=== PATIENT | female | born 1965 | race Caucasian/White ===

== ENCOUNTER 2016-12-22 13:50 | Emergency (ER) | payer OTHER ==
[~2016-12-22] VITALS: Ht 157.5 cm; Wt 100.6 kg
[2016-12-22 13:52] VITALS: BP 153/92
[2016-12-22] MEDS ORDERED: HYDROcodone/APAP 5/325 TABLET ONE (14:50)
[2016-12-22] MEDS ORDERED: HYDROcodone/APAP 5/325 TABLET PO ONE (15:00)
[2016-12-22] MEDS ORDERED: PLEASE ENTER ALLERGIES MC SCH ×2 (15:00)
== END 2016-12-22 15:42 | disposition home or self-care (01) ==
LOC: ED 15:39
DX: S52.592A Other fractures of lower end of left radius, initial encounter for closed fracture (principal); E11.9 Type 2 diabetes mellitus without complications; Z90.710 Acquired absence of both cervix and uterus; F17.200 Nicotine dependence, unspecified, uncomplicated; W19.XXXA Unspecified fall, initial encounter; Y93.89 Activity, other specified; Y92.89 Other specified places as the place of occurrence of the external cause; Y99.8 Other external cause status
CPT/HCPCS: 29125

== ENCOUNTER 2018-07-02 06:43 | Emergency (ER) | payer BC, OTHER ==
[~2018-07-02] VITALS: Ht 162.6 cm; Wt 97.5 kg
[2018-07-02] MEDS ORDERED: HYDROmorphone 1 MG/ML, 1ML IV ONE (07:30)
[2018-07-02] MEDS ORDERED: SODIUM CHLORIDE 0.9% 1,000ML IV ONE (07:30)
[2018-07-02] MEDS ORDERED: SODIUM CHLORIDE FLUSH 10ML SYR IVF ONE (07:30)
[2018-07-02] MEDS ORDERED: ONDANSETRON 2MG/ML, 2ML IVPush ONE (07:30)
[2018-07-02 07:37] LABS: BASOPHILS # (AUTO) 0.03 x10^3/uL (0-0.1); BASOPHILS % (AUTO) 1 % (0-1); EOSINOPHILS % (AUTO) 2 % (1-7); LYMPHOCYTES # (AUTO) 1.89 x10^3/uL (1-3.4); LYMPHOCYTES % (AUTO) 28 % (22-44); MD NO; MEAN CORPUSCULAR HEMOGLOBIN 30.5 pg (27.0-34.8); MEAN CORPUSCULAR HGB CONC 34.1 g/dL (32.4-35.8); MEAN CORPUSCULAR VOLUME 89.6 fL (80-100); MEAN PLATELET VOLUME 10.4 fL (7.4-10.4); MONOCYTES # (AUTO) 0.38 x10^3/uL (0.2-0.8); MONOCYTES % (AUTO) 6 % (2-9); NEUTROPHILS # (AUTO) 4.36 x10^3/uL (1.8-6.8); NEUTROPHILS % (AUTO) 65 % (42-75); PLATELET COUNT 184 x10^3/uL (130-400); RED BLOOD COUNT 4.96 x10^6/uL (3.82-5.3); RED CELL DISTRIBUTION WIDTH 13.8 % (9.6-15.2)
[2018-07-02] MEDS ORDERED: ONDANSETRON 2MG/ML, 2ML ONE (07:46)
[2018-07-02] MEDS ORDERED: HYDROmorphone 2 MG/ML, 1ML ONE (07:46)
[2018-07-02 07:50] LABS: ALANINE AMINOTRANSFERASE 42 U/L (12-78); ALBUMIN 3.5 g/dL (3.4-5.0); ANION GAP 8 mmol/L (5-15); CALCIUM 8.9 mg/dL (8.5-10.1); CHLORIDE 107 mmol/L (98-107)
[2018-07-02 07:53] LABS: ALKALINE PHOSPHATASE 128 U/L (45-117); BILIRUBIN,TOTAL 0.7 mg/dL (0.2-1.0); CREATININE 0.63 mg/dL (0.55-1.02); TOTAL PROTEIN 7.1 g/dL (6.4-8.2)
[2018-07-02 08:15] LABS: CULTURE INDICATED? NO; MICROSCOPIC NOT IND
[2018-07-02 09:12] LABS: HEMOGLOBIN A1C 11.5 % (4.2-6.3)
[2018-07-02 10:15] VITALS: BP 125/50
== END 2018-07-02 10:52 | disposition home or self-care (01) ==
LOC: ED 09:37
DX: S39.012A Strain of muscle, fascia and tendon of lower back, initial encounter (principal); E11.65 Type 2 diabetes mellitus with hyperglycemia; I10 Essential (primary) hypertension; E88.81 Metabolic syndrome and other insulin resistance; Z85.818 Personal history of malignant neoplasm of other sites of lip, oral cavity, and pharynx; Z88.5 Allergy status to narcotic agent; Z88.1 Allergy status to other antibiotic agents; Z90.710 Acquired absence of both cervix and uterus; X58.XXXA Exposure to other specified factors, initial encounter; Y93.89 Activity, other specified; Y99.8 Other external cause status; Y92.89 Other specified places as the place of occurrence of the external cause
CPT/HCPCS: 36415; 74176; 80053; 81003; 83036; 83690; 85025; 93005; 96361; 96374; 96375; 99285; J1170; J2405; J7030

== ENCOUNTER 2019-05-06 08:58 | Outpatient (CLI) | payer OTHER | END 2019-05-06 23:59 | disposition home or self-care (01) | LOC: CFH 08:58 | PROVIDERS: ATTEND Nurse Practitioner Family | DX: N64.4 Mastodynia (principal) | CPT/HCPCS: 76642; 77066; G0279 ==

== ENCOUNTER 2019-08-11 08:19 | Emergency (ER) | payer OTHER ==
[~2019-08-11] VITALS: Ht 157.5 cm; Wt 105.0 kg
--- NOTE | 2019-08-11 08:33 | NUR ---
THIS IS A 54 YO FEMALE COMING IN FOR LBP [id number], WORSENING RECENTLY. PATIENT SAW PCP AND FOLLOWED PLAN OF CARE WITH NO RELIEF. PATIENT STATES THE PAIN IS NOW RADIATING DOWN THE RIGHT LEG "LIKE A KAYLI HORSE". PATIENT IS A DIABETIC AND TOOK BLOOOD SUGAR THIS MORNING AND IT WAS 68. PATIENT HAS HAD N/V FOR THE PAST FEW DAYS, HAS NOT BEEN ABLE TO KEEP ANYTHING DOWN, DIARRHEA. PATIENT PLACED ON CONTINUOUS SPO2 AT 98%, CYCLE BP Q1HR. BLANKET PROVIDED, NEEDS ADDRESSED.
--- NOTE | 2019-08-11 08:55 | NUR ---
BLOOD SUGAR OBTAINED, CURRENTLY 65.
[2019-08-11] MEDS ORDERED: ONDANSETRON ODT 4 MG ONE (08:57)
[2019-08-11] MEDS ORDERED: METHOCARBAMOL 750 MG TABLET ONE ×2 (08:57→10:26)
[2019-08-11] MEDS ORDERED: HYDROcodone/APAP 5/325 TABLET ONE ×2 (08:57→09:01)
[2019-08-11 09:00] LABS: BASOPHILS # (AUTO) 0.04 x10^3/uL (0-0.1); BASOPHILS % (AUTO) 1 % (0-1); EOSINOPHILS # (AUTO) 0.16 x10^3/uL (0-0.4); EOSINOPHILS % (AUTO) 2 % (1-7); LYMPHOCYTES # (AUTO) 2.05 x10^3/uL (1-3.4); LYMPHOCYTES % (AUTO) 27 % (22-44); MD NO; MEAN CORPUSCULAR HEMOGLOBIN 30.1 pg (27.0-34.8); MEAN CORPUSCULAR HGB CONC 32.7 g/dL (32.4-35.8); MONOCYTES # (AUTO) 0.47 x10^3/uL (0.2-0.8); MONOCYTES % (AUTO) 6 % (2-9); NEUTROPHILS # (AUTO) 5.02 x10^3/uL (1.8-6.8); NEUTROPHILS % (AUTO) 65 % (42-75); PLATELET COUNT 194 x10^3/uL (130-400); RED BLOOD COUNT 5.09 x10^6/uL (3.82-5.3); RED CELL DISTRIBUTION WIDTH 14.2 % (9.6-15.2)
[2019-08-11] MEDS ORDERED: ONDANSETRON ODT 4 MG PO ONE (09:00)
[2019-08-11] MEDS ORDERED: METHOCARBAMOL 750 MG TABLET PO ONE (09:00)
[2019-08-11] MEDS ORDERED: HYDROcodone/APAP 5/325 TABLET PO ONE (09:00)
--- NOTE | 2019-08-11 09:03 | NUR ---
PATIENT GIVEN PO ZOFRAN, STATED "I DON'T THINK I'LL BE ABLE TO KEEP THE PILLS DOWN BECAUSE I FEEL LIKE I'M GOING TO THROW UP". OTHER MEDICATIONS HELD. NOTIFIED.
[2019-08-11] MEDS ORDERED: INSU100V35 SQ (09:06)
[2019-08-11] MEDS ORDERED: IBUP-1222 PO (09:07)
[2019-08-11] MEDS ORDERED: ESCI10TA PO (09:07)
[2019-08-11 09:08] LABS: MICROSCOPIC NOT IND
[2019-08-11] MEDS ORDERED: LEVO25TA4 PO (09:08)
[2019-08-11 09:10] LABS: ALBUMIN 3.7 g/dL (3.4-5.0); ANION GAP 4 mmol/L (5-15); CALCIUM 8.6 mg/dL (8.5-10.1); CHLORIDE 111 mmol/L (98-107); CREATININE 0.52 mg/dL (0.55-1.02)
[2019-08-11 09:11] LABS: CULTURE INDICATED? NO
--- NOTE | 2019-08-11 09:15 | NUR ---
PT TO X RAY
[2019-08-11] MEDS ORDERED: KETOROLAC 30 MG/1 ML ONE (09:42)
[2019-08-11] MEDS ORDERED: METOCLOPRAMIDE 5 MG/ML, 2ML ONE (09:42)
--- NOTE | 2019-08-11 09:55 | NUR ---
IV STARTED, PATIETN MEDICATED PER EMAR. TOLERATED WELL, NEEDS ADDRESSED.
[2019-08-11] MEDS ORDERED: KETOROLAC 30 MG/1 ML IVPush ONE (10:00)
[2019-08-11] MEDS ORDERED: SODIUM CHLORIDE 0.9% 1,000ML IVBOLUS ONE (10:00)
[2019-08-11] MEDS ORDERED: DEXTROSE 50%, 50ML SYRINGE IVPush ONE (10:00)
[2019-08-11] MEDS ORDERED: METOCLOPRAMIDE 5 MG/ML, 2ML IVPush ONE (10:00)
--- NOTE | 2019-08-11 10:28 | NUR ---
PT STATES BACK PAIN IS WORSE, BETTER WITH NAUSEA. ORDERED MEAL TRAY
--- NOTE | 2019-08-11 11:32 | NUR ---
PATIENT UP IN GURNEY, VSS, RESPIRATIONS EVEN AND UNLABORED. DENIES NEEDS AT THIS TIME, WAITING FOR FOOD TRAY.
--- NOTE | 2019-08-11 12:04 | NUR ---
PATIENT PROVIDED WITH MEAL TRAY, UP ON SIDE OF BED EATING AT THIS TIME.
[2019-08-11 12:58] VITALS: BP 140/65
== END 2019-08-11 13:05 | disposition home or self-care (01) ==
LOC: ED 08:39
DX: S39.012A Strain of muscle, fascia and tendon of lower back, initial encounter (principal); E11.649 Type 2 diabetes mellitus with hypoglycemia without coma; I10 Essential (primary) hypertension; E66.9 Obesity, unspecified; Z85.850 Personal history of malignant neoplasm of thyroid; Z88.6 Allergy status to analgesic agent; X58.XXXA Exposure to other specified factors, initial encounter; Y93.89 Activity, other specified; Y92.89 Other specified places as the place of occurrence of the external cause; Y99.8 Other external cause status
CPT/HCPCS: 36415; 72110; 80048; 81003; 82040; 82962; 85025; 96361; 96374; 96375; 99284; J1885; J2765; J7030; Q0162

== ENCOUNTER 2019-09-18 10:13 | Emergency (ER) | payer OTHER ==
[~2019-09-18] VITALS: Ht 157.5 cm; Wt 105.0 kg
[~2019-09-18 10:13] MED LIST: ESCI10TA PO; IBUP-1222 PO; INSU100V35 SQ; LEVO25TA4 PO
--- NOTE | 2019-09-18 10:31 | NUR ---
PT REFUSES WHEELCHAIR
[2019-09-18] MEDS ORDERED: DIAZEPAM 5 MG TABLET ONE (10:49)
[2019-09-18] MEDS ORDERED: KETOROLAC 30 MG/1 ML ONE (10:49)
[2019-09-18] MEDS ORDERED: DIAZEPAM 5 MG TABLET PO ONE (11:00)
[2019-09-18] MEDS ORDERED: KETOROLAC 30 MG/1 ML IM ONE (11:00)
[2019-09-18 12:03] VITALS: BP 120/77
--- NOTE | 2019-09-18 12:03 | NUR ---
PT GIVEN DC INSTRUCTIONS AND SCRIPT, PT EDUCATED REGARDING RX FOR NORCO, FLEXIRIL AND NAPROXEN. PT REPORTS PAIN AT TOLERABLE LEVEL AT THIS TIME. PT A&O, RESPS EVEN AND UNLABORED, NADN. PT STATES BG WAS LOW THIS AM, THIS RN CHECKED FSBS WHICH WAS 67. PT GIVEN JUICE, CRACKERS AND CHEESE, TOLERATED WELL. JESSICA SHIPLEY INFORMED, JESSICA OK'D DC. PT AMB TO DC DESK WITH STEADY GAIT, FAMILY TO DRIVE PT HOME.
== END 2019-09-18 12:04 | disposition home or self-care (01) ==
LOC: ED 10:36
DX: S39.012A Strain of muscle, fascia and tendon of lower back, initial encounter (principal); M51.36 Other intervertebral disc degeneration, lumbar region; M54.40 Lumbago with sciatica, unspecified side; I10 Essential (primary) hypertension; E11.9 Type 2 diabetes mellitus without complications; F17.200 Nicotine dependence, unspecified, uncomplicated; Z85.850 Personal history of malignant neoplasm of thyroid; X58.XXXA Exposure to other specified factors, initial encounter; Y93.89 Activity, other specified; Y92.89 Other specified places as the place of occurrence of the external cause; Y99.8 Other external cause status
CPT/HCPCS: 82962; 96372; 99283; J1885

== ENCOUNTER 2019-11-26 09:16 | Observation (INO) | payer OTHER ==
[~2019-11-26] VITALS: Ht 154.9 cm; Wt 107.5 kg
[2019-11-26] MEDS ORDERED: ONDANSETRON 2MG/ML, 2ML ONE (09:53)
[2019-11-26] MEDS ORDERED: DEXTROSE 50%, 50ML SYRINGE ONE ×2 (09:53→11:41)
[2019-11-26] MEDS ORDERED: SODIUM CHLORIDE FLUSH 10ML SYR IVF ONE (10:00)
[2019-11-26] MEDS ORDERED: DEXTROSE 50%, 50ML SYRINGE IVPush ONE ×4 (10:00→16:30)
[2019-11-26] MEDS ORDERED: ONDANSETRON 2MG/ML, 2ML IVPush ONE (10:00)
[2019-11-26 10:04] LABS: BASOPHILS # (AUTO) 0.05 x10^3/uL (0-0.1); BASOPHILS % (AUTO) 0 % (0-1); EOSINOPHILS # (AUTO) 0.04 x10^3/uL (0-0.4); EOSINOPHILS % (AUTO) 0 % (1-7); LYMPHOCYTES # (AUTO) 2.04 x10^3/uL (1-3.4); LYMPHOCYTES % (AUTO) 18 % (22-44); MD NO; MEAN CORPUSCULAR HEMOGLOBIN 30.4 pg (27.0-34.8); MEAN CORPUSCULAR HGB CONC 32.8 g/dL (32.4-35.8); MEAN CORPUSCULAR VOLUME 92.6 fL (80-100); MEAN PLATELET VOLUME 9.5 fL (7.4-10.4); MONOCYTES # (AUTO) 0.61 x10^3/uL (0.2-0.8); MONOCYTES % (AUTO) 5 % (2-9); NEUTROPHILS # (AUTO) 8.64 x10^3/uL (1.8-6.8); NEUTROPHILS % (AUTO) 76 % (42-75); PLATELET COUNT 239 x10^3/uL (130-400); RED BLOOD COUNT 5.25 x10^6/uL (3.82-5.3); RED CELL DISTRIBUTION WIDTH 14.9 % (9.6-15.2)
--- NOTE | 2019-11-26 10:04 | NUR ---
Pt resting in gurney, in gown, given blankets for comfort, call light within reach, placed on monitor, NAD, even and unlabored respirations, WCTM.
[2019-11-26 10:14] LABS: ANION GAP 8 mmol/L (5-15); CALCIUM 8.8 mg/dL (8.5-10.1); CHLORIDE 109 mmol/L (98-107); CREATININE 0.62 mg/dL (0.55-1.02)
[2019-11-26 10:15] LABS: ALANINE AMINOTRANSFERASE 33 U/L (12-78); ALBUMIN 3.7 g/dL (3.4-5.0)
[2019-11-26 10:16] LABS: ALKALINE PHOSPHATASE 108 U/L (45-117); BILIRUBIN,TOTAL 0.4 mg/dL (0.2-1.0); TOTAL PROTEIN 7.7 g/dL (6.4-8.2)
[2019-11-26 10:35] LABS: RAPID INFLUENZA A Negative (Negative); RAPID INFLUENZA B Negative (Negative)
[2019-11-26] MEDS: D5%-0.45% NACL 1,000 ML IV SCH ×2 (10:39→13:28)
--- NOTE | 2019-11-26 10:47 | NUR ---
pt resting in gurney, changed into gown, given pillow for comfort, NAD, denies additional needs at this time, NAD, call light within reach, WCTM. waiting for admit orders
--- NOTE | 2019-11-26 11:10 | NUR ---
[place], denies additional needs at this time, call light within reach, NAD, even and unlabored chest rise and fall. WCTM.
--- NOTE | 2019-11-26 11:45 | NUR ---
MD Diaz at bedside assessing pt
[2019-11-26] MEDS ORDERED: ACETAMINOPHEN 325 MG TABLET PO PRN (12:00)
[2019-11-26 12:10] VITALS: BP 127/68
[2019-11-26 12:17] LABS: MICROSCOPIC INDICATED
[2019-11-26 12:27] LABS: CULTURE INDICATED? YES
[2019-11-26] MEDS: ENOXAPARIN 40 MG/0.4 ML SQ SCH (12:48)
[2019-11-26] MEDS: HYDROcodone/APAP 5/325 TABLET PO PRN ×2 (12:48→18:32)
[2019-11-26] MEDS: D5%-0.9% NACL 1,000 ML IV SCH ×2 (16:51→22:51)
[2019-11-26] MEDS: ONDANSETRON 2MG/ML, 2ML IVPush PRN (16:54)
[2019-11-26 19:05] VITALS: BP 117/53
[2019-11-26] MEDS ORDERED: GLUCAGON 1 MG IM PRN (22:30)
[2019-11-26] MEDS ORDERED: DEXTROSE 4 GM TAB.CHEW PO PRN (22:30)
[2019-11-26] MEDS: DEXTROSE 50%, 50ML SYRINGE IVPush PRN (22:50)
[2019-11-27 00:21] VITALS: BP_SYST 111; BP_SYST 94; BP_DIAS 53; BP_DIAS 64
[2019-11-27] MEDS: DEXTROSE 50%, 50ML SYRINGE IVPush PRN (01:04)
[2019-11-27 01:52] VITALS: BP 99/63
[2019-11-27] MEDS: HYDROcodone/APAP 5/325 TABLET PO PRN ×2 (02:15→10:49)
[2019-11-27] MEDS: ONDANSETRON 2MG/ML, 2ML IVPush PRN (04:16)
[2019-11-27] MEDS: D5%-0.9% NACL 1,000 ML IV SCH ×2 (05:35→10:14)
[2019-11-27] MEDS ORDERED: LEVOTHYROXINE 25 MCG TABLET PO SCH (06:00)
[2019-11-27 07:02] VITALS: BP 130/76
[2019-11-27] MEDS ORDERED: ESCITALOPRAM 10MG TABLET PO SCH (09:00)
[2019-11-27] MEDS ORDERED: SODIUM CHLORIDE FLUSH 10ML SYR IVF SCH (09:00)
[2019-11-27 10:20] LABS: ANION GAP 4 mmol/L (5-15); CALCIUM 8.1 mg/dL (8.5-10.1); CHLORIDE 114 mmol/L (98-107)
[2019-11-27 10:21] LABS: BASOPHILS # (AUTO) 0.02 x10^3/uL (0-0.1); BASOPHILS % (AUTO) 0 % (0-1); EOSINOPHILS # (AUTO) 0.14 x10^3/uL (0-0.4); EOSINOPHILS % (AUTO) 3 % (1-7); LYMPHOCYTES # (AUTO) 2.02 x10^3/uL (1-3.4); LYMPHOCYTES % (AUTO) 37 % (22-44); MD NO; MEAN CORPUSCULAR HEMOGLOBIN 30.4 pg (27.0-34.8); MEAN CORPUSCULAR HGB CONC 32.6 g/dL (32.4-35.8); MEAN CORPUSCULAR VOLUME 93.2 fL (80-100); MEAN PLATELET VOLUME 9.8 fL (7.4-10.4); MONOCYTES # (AUTO) 0.43 x10^3/uL (0.2-0.8); MONOCYTES % (AUTO) 8 % (2-9); NEUTROPHILS % (AUTO) 53 % (42-75); PLATELET COUNT 183 x10^3/uL (130-400); RED BLOOD COUNT 4.46 x10^6/uL (3.82-5.3); RED CELL DISTRIBUTION WIDTH 14.8 % (9.6-15.2)
[2019-11-27] MEDS: ENOXAPARIN 40 MG/0.4 ML SQ SCH (12:06)
== END 2019-11-27 12:18 | disposition home or self-care (01) ==
LOC: ED 10:42 → INTOOBSV 11:05 → EDIP 11:05 → 4NW 12:03 → 3N 11-27 01:45
PROVIDERS: ADMIT Internal Medicine Infectious Disease; ATTEND Internal Medicine
DX: E11.649 Type 2 diabetes mellitus with hypoglycemia without coma (principal); E89.0 Postprocedural hypothyroidism; F41.9 Anxiety disorder, unspecified; A08.4 Viral intestinal infection, unspecified; I10 Essential (primary) hypertension; G89.29 Other chronic pain; Z85.850 Personal history of malignant neoplasm of thyroid; Z85.528 Personal history of other malignant neoplasm of kidney; Z79.4 Long term (current) use of insulin; Z79.899 Other long term (current) drug therapy
CPT/HCPCS: 80048; 80053; 81001; 82947; 82962; 83036; 83690; 85025; 87086; 87400; 96365; 96366; 96372; 96375; 96376; 99284; G0378; J1650; J2405; J7042

== ENCOUNTER 2020-02-10 11:51 | Inpatient (IN) | payer OTHER ==
[~2020-02-10] VITALS: Ht 160 cm; Wt 106.2 kg
[2020-02-10] MEDS ORDERED: DEXTROSE 50%, 50ML SYRINGE ONE (12:33)
--- NOTE | 2020-02-10 12:39 | NUR ---
THIS IS A 54 YO FEMALE C/O NAUSEA AND GENERALIZED MALAISE SINCE FRIDAY WITH EPISODES OF HYPOGLYCEMIA. PT AO X 4. SKIN PWD. RESP EVEN AND UNLABORED. PT ON CONT BP, CARDIAC AND O2 MONITORS. YANY HUDDLESTON AT BEDSIDE FOR EVAL. PT MEDICATED WITH AMP OF D50W. CALL LIGHT WITHIN REACH. WILL CONT TO MONITOR PT.
[2020-02-10] MEDS ORDERED: ONDANSETRON 2MG/ML, 2ML ONE (12:44)
[2020-02-10 12:58] LABS: BASOPHILS # (AUTO) 0.03 x10^3/uL (0-0.1); BASOPHILS % (AUTO) 0 % (0-1); EOSINOPHILS # (AUTO) 0.14 x10^3/uL (0-0.4); EOSINOPHILS % (AUTO) 1 % (1-7); LYMPHOCYTES # (AUTO) 2.28 x10^3/uL (1-3.4); LYMPHOCYTES % (AUTO) 21 % (22-44); MD NO; MEAN CORPUSCULAR HEMOGLOBIN 30.3 pg (27.0-34.8); MEAN CORPUSCULAR HGB CONC 32.7 g/dL (32.4-35.8); MEAN CORPUSCULAR VOLUME 92.6 fL (80-100); MEAN PLATELET VOLUME 10.4 fL (7.4-10.4); MONOCYTES # (AUTO) 0.58 x10^3/uL (0.2-0.8); MONOCYTES % (AUTO) 5 % (2-9); NEUTROPHILS # (AUTO) 8.11 x10^3/uL (1.8-6.8); NEUTROPHILS % (AUTO) 73 % (42-75); PLATELET COUNT 186 x10^3/uL (130-400); RED BLOOD COUNT 5.09 x10^6/uL (3.82-5.3); RED CELL DISTRIBUTION WIDTH 14.9 % (9.6-15.2)
[2020-02-10] MEDS ORDERED: DEXTROSE 50%, 50ML SYRINGE IVPush ONE (13:00)
[2020-02-10] MEDS ORDERED: SODIUM CHLORIDE FLUSH 10ML SYR IVF ONE (13:00)
[2020-02-10 13:12] LABS: ALANINE AMINOTRANSFERASE 24 U/L (12-78); ALBUMIN 3.5 g/dL (3.4-5.0); ANION GAP 8 mmol/L (5-15); CALCIUM 8.5 mg/dL (8.5-10.1); CHLORIDE 107 mmol/L (98-107); CREATININE 0.67 mg/dL (0.55-1.02)
[2020-02-10 13:14] LABS: ALKALINE PHOSPHATASE 105 U/L (45-117); BILIRUBIN,TOTAL 0.3 mg/dL (0.2-1.0)
[2020-02-10] MEDS ORDERED: HYDROcodone/APAP 5/325 TABLET ONE (13:25)
[2020-02-10] MEDS ORDERED: POTASSIUM CHLORIDE 40 MEQ in DEXTROSE 10% 1,000 ML IV SCH (13:30)
[2020-02-10] MEDS ORDERED: HYDROcodone/APAP 5/325 TABLET PO ONE (13:30)
--- NOTE | 2020-02-10 13:40 | NUR ---
PT REPORTED SHE FELT HER "SUGAR DROPPING AGAIN". RN RECHECKED IT. BS 69. DISCUSSED WITH YANY HUDDLESTON. DRIP ORDERED FROM PHARMACY AND PT PROVIDED WITH APPLE JUICE. PT AO X 4. SKIN PWD. RESP EVEN AND UNLABORED. PT MEDICATED FOR EXACERBATION OF CHRONIC BACK PAIN. PT REPORTS DECREASED NAUSEA. CALL LIGHT WITHIN REACH. WILL CONT TO MONITOR PT.
--- NOTE | 2020-02-10 13:59 | NUR ---
REPORT TO MANUELITO TRIPATHI WHO ASSUMED CARE OF PT.
--- NOTE | 2020-02-10 14:04 | NUR ---
RECEIVED REPORT FROM SHERRI BILLINGS. INTRODUCED MYSELF TO PT. ASSISTED PT TO RESTROOM. PLACED PT ON APPLICATIONS MANAGER. CHECKED BS PRIOR TO BEGINNING FLUIDS. BS 63. ADMITTING PROVIDER AT BEDSIDE AND AWARE. STARTED FLUIDS WITH D10 AND K PER EMAR. WILL CONTINUE TO MONITOR.
[2020-02-10] MEDS ORDERED: DEXTROSE 50%, 50ML SYRINGE IVPush PRN (14:30)
[2020-02-10] MEDS ORDERED: GLUCAGON 1 MG IM PRN (14:30)
[2020-02-10] MEDS ORDERED: ACETAMINOPHEN 325 MG TABLET PO PRN (14:30)
[2020-02-10] MEDS ORDERED: hydrALAzine 20 MG/ML, 1ML IVPush PRN (14:30)
[2020-02-10] MEDS ORDERED: DEXTROSE 4 GM TAB.CHEW PO PRN (14:30)
[2020-02-10 14:43] LABS: MICROSCOPIC INDICATED
--- NOTE | 2020-02-10 14:55 | NUR ---
BS 100
--- NOTE | 2020-02-10 15:02 | NUR ---
GAVE REPORT TO MARLYN BILLINGS
[2020-02-10 15:25] LABS: FREE T4 (FREE THYROXINE) 1.06 ng/dL (0.76-1.46)
[2020-02-10 16:07] VITALS: BP 124/66
[2020-02-10] MEDS ORDERED: HYDR-3652 PO (16:19)
[2020-02-10] MEDS ORDERED: EMPA10TA PO (16:19)
[2020-02-10] MEDS: ENOXAPARIN 40 MG/0.4 ML SQ SCH (17:07)
[2020-02-10] MEDS: POTASSIUM CHLORIDE 10 MEQ in DEXTROSE 10% 1,000 ML IV SCH (17:07)
[2020-02-10] MEDS: NICOTINE 7 MG/24 HR PATCH.TD24 TD SCH (17:09)
[2020-02-10] MEDS: OXYcodone IR 5MG TABLET PO PRN ×2 (17:22→21:36)
[2020-02-10 18:57] VITALS: BP 130/79
[2020-02-10] MEDS: ONDANSETRON 2MG/ML, 2ML IVPush PRN (20:04)
[2020-02-10] MEDS: TRAZODONE 50MG TABLET PO PRN (21:35)
[2020-02-10] MEDS: SODIUM CHLORIDE FLUSH 10ML SYR IVF SCH (21:35)
[2020-02-11 00:49] VITALS: BP 97/63
[2020-02-11] MEDS: POTASSIUM CHLORIDE 10 MEQ in DEXTROSE 10% 1,000 ML IV SCH ×3 (02:20→22:00)
[2020-02-11 05:39] LABS: ANION GAP 6 mmol/L (5-15); CALCIUM 8.7 mg/dL (8.5-10.1); CHLORIDE 110 mmol/L (98-107)
[2020-02-11 05:40] LABS: CREATININE 0.74 mg/dL (0.55-1.02)
[2020-02-11] MEDS: LEVOTHYROXINE 25 MCG TABLET PO SCH (05:45)
[2020-02-11] MEDS: OXYcodone IR 5MG TABLET PO PRN ×3 (05:50→18:16)
[2020-02-11 05:59] LABS: BASOPHILS # (AUTO) 0.02 x10^3/uL (0-0.1); BASOPHILS % (AUTO) 0 % (0-1); EOSINOPHILS % (AUTO) 1 % (1-7); LYMPHOCYTES # (AUTO) 1.98 x10^3/uL (1-3.4); LYMPHOCYTES % (AUTO) 26 % (22-44); MD NO; MEAN CORPUSCULAR HEMOGLOBIN 30.3 pg (27.0-34.8); MEAN CORPUSCULAR HGB CONC 32.8 g/dL (32.4-35.8); MEAN CORPUSCULAR VOLUME 92.6 fL (80-100); MEAN PLATELET VOLUME 11.2 fL (7.4-10.4); MONOCYTES # (AUTO) 0.54 x10^3/uL (0.2-0.8); MONOCYTES % (AUTO) 7 % (2-9); NEUTROPHILS # (AUTO) 4.95 x10^3/uL (1.8-6.8); NEUTROPHILS % (AUTO) 65 % (42-75); PLATELET COUNT 195 x10^3/uL (130-400); RED BLOOD COUNT 4.76 x10^6/uL (3.82-5.3); RED CELL DISTRIBUTION WIDTH 15.4 % (9.6-15.2)
[2020-02-11 07:14] VITALS: BP 101/61
[2020-02-11] MEDS: ONDANSETRON 2MG/ML, 2ML IVPush PRN (11:30)
[2020-02-11] MEDS: CEFTRIAXONE PMX 1GM/50ML 50 ML IV SCH (11:30)
[2020-02-11] MEDS: SENNA/DOCUSATE TABLET PO SCH (11:31)
[2020-02-11] MEDS: SODIUM CHLORIDE FLUSH 10ML SYR IVF SCH ×2 (11:31→20:30)
[2020-02-11] MEDS: CITALOPRAM 10 MG TABLET PO SCH (11:31)
[2020-02-11 12:57] VITALS: BP 113/68
[2020-02-11 14:31] VITALS: BP 94/59
[2020-02-11] MEDS: NICOTINE 7 MG/24 HR PATCH.TD24 TD SCH (16:15)
[2020-02-11] MEDS: ENOXAPARIN 40 MG/0.4 ML SQ SCH (16:15)
[2020-02-11 19:34] VITALS: BP 101/63
[2020-02-12 01:41] VITALS: BP 111/66
[2020-02-12 04:24] LABS: BASOPHILS # (AUTO) 0.02 x10^3/uL (0-0.1); BASOPHILS % (AUTO) 0 % (0-1); EOSINOPHILS % (AUTO) 3 % (1-7); LYMPHOCYTES # (AUTO) 2.61 x10^3/uL (1-3.4); LYMPHOCYTES % (AUTO) 36 % (22-44); MD NO; MEAN CORPUSCULAR HEMOGLOBIN 30.1 pg (27.0-34.8); MEAN CORPUSCULAR HGB CONC 32.2 g/dL (32.4-35.8); MEAN CORPUSCULAR VOLUME 93.4 fL (80-100); MEAN PLATELET VOLUME 10.3 fL (7.4-10.4); MONOCYTES # (AUTO) 0.59 x10^3/uL (0.2-0.8); MONOCYTES % (AUTO) 8 % (2-9); NEUTROPHILS # (AUTO) 3.79 x10^3/uL (1.8-6.8); NEUTROPHILS % (AUTO) 53 % (42-75); PLATELET COUNT 199 x10^3/uL (130-400); RED BLOOD COUNT 4.68 x10^6/uL (3.82-5.3); RED CELL DISTRIBUTION WIDTH 14.8 % (9.6-15.2)
[2020-02-12 04:34] LABS: ALBUMIN 3.1 g/dL (3.4-5.0); ANION GAP 3 mmol/L (5-15); CALCIUM 8.4 mg/dL (8.5-10.1); CHLORIDE 109 mmol/L (98-107)
[2020-02-12 04:38] LABS: ALANINE AMINOTRANSFERASE 20 U/L (12-78); ALKALINE PHOSPHATASE 92 U/L (45-117); BILIRUBIN,TOTAL 0.5 mg/dL (0.2-1.0); CREATININE 0.74 mg/dL (0.55-1.02); TOTAL PROTEIN 6.3 g/dL (6.4-8.2)
[2020-02-12] MEDS: LEVOTHYROXINE 25 MCG TABLET PO SCH (06:17)
[2020-02-12 07:02] VITALS: BP 116/76
[2020-02-12] MEDS: POTASSIUM CHLORIDE 10 MEQ in DEXTROSE 10% 1,000 ML IV SCH ×2 (08:00→18:00)
[2020-02-12] MEDS: SODIUM CHLORIDE FLUSH 10ML SYR IVF SCH ×2 (08:06→20:20)
[2020-02-12] MEDS: OXYcodone IR 5MG TABLET PO PRN ×3 (08:08→20:21)
[2020-02-12] MEDS: ONDANSETRON 2MG/ML, 2ML IVPush PRN (08:08)
[2020-02-12] MEDS: CITALOPRAM 10 MG TABLET PO SCH (08:11)
[2020-02-12] MEDS: SENNA/DOCUSATE TABLET PO SCH (08:12)
[2020-02-12] MEDS: CEFTRIAXONE PMX 1GM/50ML 50 ML IV SCH (10:50)
[2020-02-12] MEDS: METOCLOPRAMIDE 10MG TABLET PO SCH ×3 (12:03→20:22)
[2020-02-12 13:21] VITALS: BP 135/84
[2020-02-12] MEDS: ENOXAPARIN 40 MG/0.4 ML SQ SCH (16:25)
[2020-02-12] MEDS: NICOTINE 7 MG/24 HR PATCH.TD24 TD SCH (16:25)
[2020-02-12 20:18] VITALS: BP 118/76
[2020-02-12] MEDS: TRAZODONE 50MG TABLET PO PRN (20:20)
[2020-02-13 00:18] VITALS: BP 113/50
[2020-02-13] MEDS: POTASSIUM CHLORIDE 10 MEQ in DEXTROSE 10% 1,000 ML IV SCH (04:00)
[2020-02-13] MEDS: LEVOTHYROXINE 25 MCG TABLET PO SCH (05:47)
[2020-02-13 07:02] VITALS: BP 127/80
[2020-02-13] MEDS: SODIUM CHLORIDE FLUSH 10ML SYR IVF SCH (07:46)
[2020-02-13] MEDS: METOCLOPRAMIDE 10MG TABLET PO SCH ×2 (07:46→11:12)
[2020-02-13] MEDS: SENNA/DOCUSATE TABLET PO SCH (08:14)
[2020-02-13] MEDS ORDERED: DEXT-230 PO (10:05)
[2020-02-13] MEDS ORDERED: ONDA4TAB13 SL (10:05)
== END 2020-02-13 12:50 | disposition home or self-care (01) | DRG 638 ==
LOC: ED 13:05 → EDIP 13:35 → SUATTDRO 13:36 → 4WST 15:36
PROVIDERS: ADMIT Internal Medicine; ATTEND Internal Medicine
DX: E11.649 Type 2 diabetes mellitus with hypoglycemia without coma (principal); N39.0 Urinary tract infection, site not specified; E87.6 Hypokalemia; E89.0 Postprocedural hypothyroidism; F17.210 Nicotine dependence, cigarettes, uncomplicated; G89.29 Other chronic pain; I10 Essential (primary) hypertension; K59.09 Other constipation; K76.0 Fatty (change of) liver, not elsewhere classified; Z79.84 Long term (current) use of oral hypoglycemic drugs; Z85.850 Personal history of malignant neoplasm of thyroid; Z87.442 Personal history of urinary calculi; Z90.710 Acquired absence of both cervix and uterus; Z88.5 Allergy status to narcotic agent; Z88.8 Allergy status to other drugs, medicaments and biological substances
CPT/HCPCS: 36415; 71045; 74170; 80048; 80053; 80377; 81001; 82105; 82378; 82533; 82962; 83036; 83525; 83690; 83735; 84100; 84439; 84443; 84681; 85025; 86337; 87086; 96374; 99291; G0378; J0696; J1650; J2405; J3480; G0481

== ENCOUNTER 2020-03-06 09:00 | Inpatient (IN) | payer OTHER ==
[~2020-03-06] VITALS: Ht 157.5 cm; Wt 105.3 kg
[~2020-03-06 09:00] MED LIST changes: +DEXT-230 PO; +EMPA10TA PO; +HYDR-3652 PO; +ONDA4TAB13 SL
[2020-03-06] MEDS: D5%-0.45% NACL 1,000 ML IV SCH ×2 (09:48→14:25)
--- NOTE | 2020-03-06 10:05 | NUR ---
ERP AWARE OF FSBG 139, NO NEW ORDERS AT THIS TIME.
--- NOTE | 2020-03-06 10:15 | NUR ---
LATE ENTRY FOR 1015: REPORT RECEIVED FROM RN ANKIT, PT PRESENTS TO ED WITH C/O SYMPTOMATIC HYPOGLYCEMIA THIS AM. PT REPORTS SHE CAME TO ED CONCERNED THAT BG WOULD DROP AGAIN SHE HAS HX REFRACTORY HYPOGLYCEMIA. PT A&O, RESPS EVEN AND UNLABORED. NEURO INTACT. IVF INFUSING PER EMAR, MONITORS IN PLACE. CALL LIGHT IN REACH.
[2020-03-06 10:17] LABS: BASOPHILS # (AUTO) 0.02 x10^3/uL (0-0.1); BASOPHILS % (AUTO) 0 % (0-1); EOSINOPHILS # (AUTO) 0.04 x10^3/uL (0-0.4); EOSINOPHILS % (AUTO) 1 % (1-7); LYMPHOCYTES # (AUTO) 2.01 x10^3/uL (1-3.4); LYMPHOCYTES % (AUTO) 22 % (22-44); MD NO; MEAN CORPUSCULAR HEMOGLOBIN 30.6 pg (27.0-34.8); MEAN CORPUSCULAR HGB CONC 32.8 g/dL (32.4-35.8); MEAN CORPUSCULAR VOLUME 93.2 fL (80-100); MEAN PLATELET VOLUME 9.7 fL (7.4-10.4); MONOCYTES # (AUTO) 0.53 x10^3/uL (0.2-0.8); MONOCYTES % (AUTO) 6 % (2-9); NEUTROPHILS # (AUTO) 6.44 x10^3/uL (1.8-6.8); NEUTROPHILS % (AUTO) 71 % (42-75); PLATELET COUNT 206 x10^3/uL (130-400); RED BLOOD COUNT 4.62 x10^6/uL (3.82-5.3); RED CELL DISTRIBUTION WIDTH 14.5 % (9.6-15.2)
[2020-03-06 10:28] LABS: ALANINE AMINOTRANSFERASE 24 U/L (12-78); ALBUMIN 3.2 g/dL (3.4-5.0); ANION GAP 7 mmol/L (5-15); CALCIUM 8.3 mg/dL (8.5-10.1); CHLORIDE 109 mmol/L (98-107); CREATININE 0.62 mg/dL (0.55-1.02)
[2020-03-06 10:39] LABS: ALKALINE PHOSPHATASE 98 U/L (45-117); BILIRUBIN,TOTAL 0.4 mg/dL (0.2-1.0); TOTAL PROTEIN 6.7 g/dL (6.4-8.2)
--- NOTE | 2020-03-06 10:47 | NUR ---
IVF GTT STOPPED AT THIS TIME PER EDMD REQUEST.
--- NOTE | 2020-03-06 11:30 | NUR ---
PER MD REBOLLAR, PT TO HAVE REPEAT GLUCOSE CHECK AT 1145. PT A&O, REPSS EVEN AND UNLABORED ,NEURO INTACT. PT ASSISTED TO BATHROOM BY RN, NOW BACK IN BED, ALL MONITORS IN PLACE. 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 PT UPDATED WITH POC.
[2020-03-06] MEDS ORDERED: D5%-0.45% NACL 1,000 ML IV SCH (12:00)
[2020-03-06] MEDS ORDERED: ONDANSETRON ODT 4 MG ONE (12:13)
[2020-03-06] MEDS ORDERED: ONDANSETRON ODT 4 MG PO ONE (12:30)
--- NOTE | 2020-03-06 12:46 | NUR ---
REPORT GIVEN TO MANUELITO PHILIP, PT AWAITING TRANSPORT TO ROOM 344.
[2020-03-06] MEDS ORDERED: HYDR-3240 PO (12:52)
[2020-03-06] MEDS ORDERED: DEXTROSE 50%, 50ML SYRINGE ONE (12:55)
[2020-03-06] MEDS ORDERED: DEXTROSE 50%, 50ML SYRINGE IVPush ONE (13:00)
--- NOTE | 2020-03-06 13:00 | NUR ---
REPEAT BG 59, EDMD KETURAH NOTIFIED. 1/2 AMP D50% ORDERED, WELL IVF TO CHANGE TO D10. 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
--- NOTE | 2020-03-06 13:09 | NUR ---
D10 GTT NOT IN ED OMNICELL, REQUESTED FROM PHARMACY.
--- NOTE | 2020-03-06 13:47 | NUR ---
REPEAT GLUCOSE 88, PER ERP KETURAH PT OK TO GO UP TO FLOOR. PT A&O, RESPS EVEN AND UNLABORED, TOLERATING PO JUICE, PB AND CRACKERS WITH OK. AWAITING TRANSPORT AT THIS TIME.
[2020-03-06] MEDS ORDERED: DEXTROSE 10% 1,000 ML IV SCH ×3 (14:00→21:00)
[2020-03-06 14:05] VITALS: BP 123/68
[2020-03-06] MEDS ORDERED: HYDROcodone/APAP 5/325 TABLET PO ONE (15:00)
[2020-03-06] MEDS ORDERED: ONDANSETRON 2MG/ML, 2ML IVPush PRN (15:30)
[2020-03-06] MEDS ORDERED: DEXTROSE 50%, 50ML SYRINGE IVPush PRN (15:30)
[2020-03-06] MEDS ORDERED: GLUCAGON 1 MG IM PRN (15:30)
[2020-03-06] MEDS ORDERED: DEXTROSE 4 GM TAB.CHEW PO PRN (15:30)
[2020-03-06] MEDS ORDERED: ONDANSETRON ODT 4 MG PO PRN (15:30)
[2020-03-06] MEDS: ENOXAPARIN 40 MG/0.4 ML SQ SCH (18:42)
[2020-03-06] MEDS: SODIUM CHLORIDE FLUSH 10ML SYR IVF SCH (20:19)
[2020-03-06] MEDS: HYDROcodone/APAP 5/325 TABLET PO PRN (20:27)
[2020-03-06 20:58] VITALS: BP 120/72
[2020-03-06] MEDS ORDERED: DEXTROSE 5% 1,000 ML IV SCH (22:30)
[2020-03-07 02:05] VITALS: BP 125/74
[2020-03-07] MEDS: HYDROcodone/APAP 5/325 TABLET PO PRN ×3 (02:16→20:27)
[2020-03-07] MEDS ORDERED: PROMETHAZINE 25 MG/ML, 1ML IM PRN (03:00)
[2020-03-07] MEDS: DEXTROSE 5% 1,000 ML IV SCH ×3 (03:05→15:47)
[2020-03-07 05:31] LABS: BASOPHILS # (AUTO) 0.02 x10^3/uL (0-0.1); BASOPHILS % (AUTO) 0 % (0-1); EOSINOPHILS # (AUTO) 0.23 x10^3/uL (0-0.4); EOSINOPHILS % (AUTO) 3 % (1-7); LYMPHOCYTES # (AUTO) 2.72 x10^3/uL (1-3.4); LYMPHOCYTES % (AUTO) 37 % (22-44); MD NO; MEAN CORPUSCULAR HEMOGLOBIN 30.4 pg (27.0-34.8); MEAN CORPUSCULAR HGB CONC 32.6 g/dL (32.4-35.8); MEAN CORPUSCULAR VOLUME 93.1 fL (80-100); MEAN PLATELET VOLUME 10.7 fL (7.4-10.4); MONOCYTES # (AUTO) 0.58 x10^3/uL (0.2-0.8); MONOCYTES % (AUTO) 8 % (2-9); NEUTROPHILS # (AUTO) 3.74 x10^3/uL (1.8-6.8); NEUTROPHILS % (AUTO) 51 % (42-75); PLATELET COUNT 186 x10^3/uL (130-400); RED BLOOD COUNT 4.52 x10^6/uL (3.82-5.3); RED CELL DISTRIBUTION WIDTH 14.7 % (9.6-15.2)
[2020-03-07 05:41] LABS: CHLORIDE 111 mmol/L (98-107)
[2020-03-07 05:51] LABS: ALANINE AMINOTRANSFERASE 22 U/L (12-78); ALBUMIN 2.9 g/dL (3.4-5.0); ALKALINE PHOSPHATASE 91 U/L (45-117); ANION GAP 4 mmol/L (5-15); BILIRUBIN,TOTAL 0.6 mg/dL (0.2-1.0); CREATININE 0.59 mg/dL (0.55-1.02); TOTAL PROTEIN 6.1 g/dL (6.4-8.2)
[2020-03-07 07:20] VITALS: BP 110/71
[2020-03-07] MEDS: LEVOTHYROXINE 25 MCG TABLET PO SCH (08:40)
[2020-03-07] MEDS: ESCITALOPRAM 10MG TABLET PO SCH (08:40)
[2020-03-07] MEDS: SODIUM CHLORIDE FLUSH 10ML SYR IVF SCH ×2 (08:41→20:15)
[2020-03-07 14:42] VITALS: BP 97/61
[2020-03-07] MEDS: ENOXAPARIN 40 MG/0.4 ML SQ SCH (15:46)
[2020-03-07 19:45] VITALS: BP 105/67
[2020-03-07] MEDS ORDERED: DEXTROSE 5% 1,000 ML IV SCH (22:30)
[2020-03-08] MEDS: DEXTROSE 5% 1,000 ML IV SCH ×3 (00:11→23:25)
[2020-03-08 01:39] VITALS: BP 105/68
[2020-03-08 06:25] VITALS: BP 122/79
[2020-03-08] MEDS: ESCITALOPRAM 10MG TABLET PO SCH (07:39)
[2020-03-08] MEDS: LEVOTHYROXINE 25 MCG TABLET PO SCH (07:39)
[2020-03-08] MEDS: HYDROcodone/APAP 5/325 TABLET PO PRN ×4 (07:40→19:46)
[2020-03-08] MEDS: SODIUM CHLORIDE FLUSH 10ML SYR IVF SCH ×2 (09:00→19:47)
[2020-03-08 12:41] VITALS: BP 105/69
[2020-03-08] MEDS: ENOXAPARIN 40 MG/0.4 ML SQ SCH (15:08)
[2020-03-08 18:52] VITALS: BP 106/71
[2020-03-09 00:49] VITALS: BP 108/71
[2020-03-09] MEDS ORDERED: DEXTROSE 5% 1,000 ML IV SCH (03:00)
[2020-03-09 07:13] VITALS: BP 123/76
[2020-03-09] MEDS: LEVOTHYROXINE 25 MCG TABLET PO SCH (08:16)
[2020-03-09] MEDS: ESCITALOPRAM 10MG TABLET PO SCH (08:16)
[2020-03-09] MEDS: HYDROcodone/APAP 5/325 TABLET PO PRN ×3 (08:16→17:31)
[2020-03-09] MEDS: SODIUM CHLORIDE FLUSH 10ML SYR IVF SCH ×2 (09:00→20:08)
[2020-03-09 12:47] VITALS: BP 119/79
[2020-03-09] MEDS: DEXTROSE 5% 1,000 ML IV SCH (13:31)
[2020-03-09] MEDS: ENOXAPARIN 40 MG/0.4 ML SQ SCH (17:30)
[2020-03-09 20:27] VITALS: BP 113/73
[2020-03-10 01:26] VITALS: BP 114/72
[2020-03-10] MEDS: DEXTROSE 5% 1,000 ML IV SCH (02:53)
[2020-03-10 07:28] VITALS: BP 105/69
[2020-03-10] MEDS: LEVOTHYROXINE 25 MCG TABLET PO SCH (08:00)
[2020-03-10] MEDS: ESCITALOPRAM 10MG TABLET PO SCH (08:00)
[2020-03-10] MEDS: SODIUM CHLORIDE FLUSH 10ML SYR IVF SCH (08:01)
[2020-03-10] MEDS: HYDROcodone/APAP 5/325 TABLET PO PRN (08:48)
[2020-03-10] MEDS ORDERED: ENOXAPARIN 30 MG/0.3 ML SQ SCH (13:30)
[2020-03-11] MEDS ORDERED: LEVOTHYROXINE 25 MCG TABLET PO SCH (06:00)
== END 2020-03-10 13:38 | disposition home or self-care (01) | DRG 639 ==
LOC: ED 11:21 → EDIP 12:16 → 3N 14:06 → DCLOUNGE 03-10 13:30
PROVIDERS: ADMIT Hospitalist; ATTEND Internal Medicine
DX: E11.649 Type 2 diabetes mellitus with hypoglycemia without coma (principal); E89.0 Postprocedural hypothyroidism; F17.210 Nicotine dependence, cigarettes, uncomplicated; J32.0 Chronic maxillary sinusitis; G89.29 Other chronic pain; M54.9 Dorsalgia, unspecified; K76.0 Fatty (change of) liver, not elsewhere classified; Z85.850 Personal history of malignant neoplasm of thyroid; Z87.442 Personal history of urinary calculi; Z90.710 Acquired absence of both cervix and uterus; Z88.5 Allergy status to narcotic agent; Z88.1 Allergy status to other antibiotic agents
CPT/HCPCS: 70450; 80053; 82962; 83036; 83690; 84443; 85025; 96360; G0378; J1650; J2550; J7070; Q0162